=== PATIENT | male | born 1955 | race Caucasian/White ===

== ENCOUNTER 2017-09-02 14:58 | Inpatient (IN) | payer MEDICARE ==
[2017-09-02] MEDS ORDERED: HYDROcodone/APAP 5-325MG 1 EACH TAB PO STA (15:30)
--- NOTE | 2017-09-02 15:46 | ED ---
Back Pain HPI - General Chief Complaint: Back Pain/Injury Stated Complaint: fall, back pain Time Seen by Provider: 09/02/17 15:12 Source: patient, EMS Limitations: no limitations - History of Present Illness Initial Comments: Patient is a 62-year-old male who presents with the chief complaint of lower back pain after slip and fall accident down 5 wooden steps. The patient states that he was staying his deck and when he stood up he slipped. Patient states he did not lose consciousness. He only complains of low back pain at this time. The patient denies any use of blood thinners. The patient states that his lower back is sore, it is aggravated by movement and bearing weight. - Related Data Home Medications Medication Instructions Recorded Confirmed Atorvastatin [Lipitor] 40 mg PO HS 09/02/17 09/02/17 Fenofibrate Nanocrystallized 145 mg PO HS 09/02/17 09/02/17 [Fenofibrate] Gabapentin [Neurontin] 900 mg PO TID 09/02/17 09/02/17 Hydrocodone/Acetaminophen [[place] 1 tab PO Q6HR PRN 09/02/17 09/02/17 7.5-325] Allergies Allergy/AdvReac Type Severity Reaction Status Date / Time No Known Allergies Allergy Verified 09/02/17 15:50 Review of Systems ROS Statement: Those systems with pertinent positive or pertinent negative responses have been documented in the HPI. ROS Other: All systems not noted in ROS Statement are negative. Musculoskeletal: Reports: back pain Past Medical History Past Medical History: Coronary Artery Disease (CAD) Additional Past Medical History / Comment(s): spinal stenosis, DDD, lower back bulging disc History of Any Multi-Drug Resistant Organisms: None Reported Past Surgical History: Adenoidectomy, Heart Catheterization With Stent, Tonsillectomy Additional Past Surgical History / Comment(s): nasal surgery Past Psychological History: No Psychological Hx Reported Smoking Status: Current every day smoker Past Alcohol Use History: None Reported Past Drug Use History: None Reported General Exam Limitations: no limitations General appearance: alert, in no apparent distress Head exam: Present: atraumatic, normocephalic Eye exam: Present: normal appearance, PERRL, EOMI ENT exam: Present: normal exam, normal oropharynx, mucous membranes moist Neck exam: Present: normal inspection. Absent: tenderness Respiratory exam: Present: normal lung sounds bilaterally. Absent: respiratory distress Cardiovascular Exam: Present: regular rate, normal rhythm GI/Abdominal exam: Present: soft. Absent: distended, tenderness Rectal exam: Present: deferred Extremities exam: Present: normal inspection Back exam: Present: tenderness, muscle spasm, paraspinal tenderness, vertebral tenderness (patient has tenderness to palpation of the lumbar spine. there are no deformities or step offs. there is paraspinal musculature spasm. ) Neurological exam: Present: alert, oriented X3, CN II-XII intact, motor sensory deficit, reflexes normal, other (patellar reflexes 2+ b/l. motor and sensation is intact. ). Absent: normal gait Psychiatric exam: Present: normal affect, normal mood Skin exam: Present: warm, dry, intact Course Vital Signs 09/02/17 09/02/17 09/02/17 14:59 15:06 17:21 Temperature 97.8 F 98.6 F Pulse Rate 102 H 102 H 88 Respiratory 18 20 18 Rate Blood Pressure 137/80 137/80 146/91 O2 Sat by Pulse 94 L 95 96 Oximetry Medical Decision Making - Medical Decision Making Patient presents with a chief complaint of low back pain after a fall. On initial evaluation, vital signs are stable, patient is in no acute distress. The patient denies any use of blood thinners or loss of consciousness. There is no signs of trauma to the head, the neck is without midline tenderness. Patient given [place] in the emergency department for pain, he will be evaluated with x-rays of the lumbar spine and pelvis. 6:03 PM X-ray evaluation of this patient is unremarkable. On reevaluation, the patient states that he is still in pain but it doesn't hurt if he doesn't move. I tried a patient he was able to stand up. The patient lives at home with his 2 sisters were unable to care for him. I discussed this case with Dr. winston, the decision was made to admit the patient for physical therapy consultation and placement if necessary. patient and family agreeable to this plan. Disposition Clinical Impression: Unsteady gait, Low back pain, Mechanical back pain Disposition: ADMITTED IP TO THIS [facility] Condition: Good Instructions: Acute Low Back Pain (ED) Referrals: None,Stated [REFERRING] - 1-2 days Decision to Admit Reason: Admit from EC - Out of Hospital Transfer - Req. Specs Out of Hospital Transfer - Requested Specifics: Other Non-Acute
--- NOTE | 2017-09-02 16:40 | XR ---
EXAMINATION TYPE: XR pelvis AP view DATE OF EXAM: 09/02/2017 CLINICAL HISTORY: pain TECHNIQUE: Single view the pelvis is submitted. FINDINGS: No evidence for fracture, dislocation or bony lesion. Joint spaces are well-preserved. S I joints appear symmetric. IMPRESSION: 1. No acute fracture or dislocation seen. ICD 10 NO FRACTURE, INITIAL EVALUATION
--- NOTE | 2017-09-02 16:45 | XR ---
EXAMINATION TYPE: XR lumbar spine 2 or 3V DATE OF EXAM: 09/02/2017 CLINICAL HISTORY: pain TECHNIQUE: Three views of the lumbar spine are submitted. COMPARISON: None. FINDINGS: There are 5 lumbar type vertebral bodies identified. The lumbar spine shows satisfactory alignment w ithout evidence of acute fracture or dislocation. Vertebral body heights are within normal limits. Moderate to severe degenerative narrowing at L5-S1 with spondylosis. The overlying soft tissue appea rs unremarkable. IMPRESSION: No acute fracture or dislocation is seen in the lumbar spine. ICD 10 NO FRACTURE, INITIAL EVALUATION
[2017-09-02] MEDS ORDERED: IBUPROFEN 800 MG TAB PO PRN (18:00)
[2017-09-02] MEDS ORDERED: NALOXONE 0.4 MG/ML 1 ML VIAL IV PRN (18:00)
[2017-09-02 18:39] LABS: Basophils % (A) 0 %; Eosinophils # (A) 0.2 k/uL (0-0.7); Eosinophils % (A) 3 %; HCT 37.6 % (39.0-53.0); HGB 12.4 gm/dL (13.0-17.5); Lymphocytes # (A) 2.4 k/uL (1.0-4.8); Lymphocytes % (A) 34 %; MCH 29.7 pg (25.0-35.0); Mean Platelet Volume 6.9; Monocytes # (A) 0.3 k/uL (0-1.0); Monocytes % (A) 4 %; Neutrophils % (A) 57 %; Platelet Count 432 k/uL (150-450); RBC 4.18 m/uL (4.30-5.90); RDW 13.9 % (11.5-15.5)
[2017-09-02 18:47] LABS: Anion Gap 11 mmol/L; Blood Urea Nitrogen 14 mg/dL (9-20); Calcium 9.4 mg/dL (8.4-10.2); Carbon Dioxide 24 mmol/L (22-30); Chloride 110 mmol/L (98-107); Glucose 92 mg/dL (74-99); Sodium 145 mmol/L (137-145)
--- NOTE | 2017-09-02 19:59 | CT ---
EXAMINATION TYPE: CT pelvis wo con DATE OF EXAM: 09/02/2017 COMPARISON: NONE HISTORY: Lower back/sacrum and coccyx's pain after fall injury CT DLP: 670.85 mGycm Automated exposure control for dose reduction was used. Axial and coronal and sagittal data sets were obtained and reviewed. FINDINGS: There is no fracture or malalignment. Left unilateral L5 pars intra-articular defect is noted, an inc idental finding. No other musculoskeletal findings. Solid and hollow viscera of the pelvis is unremarkable. IMPRESSION: NO ACUTE PROCESS.
--- NOTE | 2017-09-02 20:03 | CT ---
EXAMINATION TYPE: CT lumbar spine wo con DATE OF EXAM: 09/02/2017 7:17 PM COMPARISON: NONE HISTORY: Lower back/sacrum and coccyx's pain after fall injury CT DLP: 617.34 mGycm Automated exposure control for dose reduction was used. Axial and coronal and sagittal data sets were obtained and reviewed. FINDINGS: There is no fracture or malalignment. Incidental left L5 pars interarticularis defect noted, an incid ental finding. No other musculoskeletal findings. There is a 15 x 5 mm obstructing staghorn calcification in the right renal lower collecting system. Moderate nonaneurysmal atherosclerotic intimal calcifications are appreciated throughout the arterial anatomy. IMPRESSION: NO ACUTE PROCESS.
[2017-09-02] MEDS: FENOFIBRATE 160 MG TAB PO SCH (21:54)
[2017-09-02] MEDS: PANTOPRAZOLE 40 MG TABLET PO SCH (21:54)
[2017-09-02] MEDS: GABAPENTIN 300 MG CAP PO SCH (21:54)
[2017-09-02] MEDS: ATORVASTATIN 40 MG TAB PO SCH (21:55)
[2017-09-02] MEDS: NICOTINE 14MG/24HR PATCH TRANSDERM SCH (21:55)
[2017-09-02] MEDS: oxyCODONE-APAP 5-325MG 1 EACH TAB PO PRN (21:59)
[2017-09-03] MEDS: KETOROLAC 30 MG/ML 1 ML VIAL IVP PRN ×4 (00:27→19:21)
--- NOTE | 2017-09-03 03:35 | HP ---
HISTORY AND PHYSICAL DATE OF ADMISSION: 09/02/17 I am covering for Dr. Иван Enriquez. CHIEF COMPLAINT: Back pain and fall. HISTORY OF PRESENT ILLNESS: This 62-year-old gentleman with a past medical history of multiple medical problems including asthma, CAD, COPD, GERD, hyperlipidemia, sleep apnea, spinal stenosis, CAD stent being followed by Dr. Иван Enriquez in the outpatient setting was admitted after a fall while on the ladder. The patient fell down about 5 wooden steps and patient is complaining of severe back pain just above the tailbone, which radiated to the back without much radiation to the legs. Patient also complains of neck pain. The patient had extensive x-ray evaluation which shows no fractures at this time. There is no history of fever, rigors or chills. No history of headache loss of consciousness or seizures at this time. PAST MEDICAL HISTORY: Asthma, CAD, COPD, GERD, hyperlipidemia, spinal stenosis, CAD stent. MEDICATIONS: Prior to admission include: 1. Omeprazole 20 mg p.o. b.i.d. 2. Neurontin 100 mg t.i.d. 3. Fenofibrate 140 mg q.h.s. 4. [place] 1 tablet every 6 hours p.r.n. 5. Lipitor 40 mg q.h.s. ALLERGIES: None. FAMILY HISTORY: History of myocardial infarction in the family. SOCIAL HISTORY: History of occasional alcohol intake and history of smoking. REVIEW OF SYSTEMS: ENT: No diminished hearing or diminished vision. CARDIOVASCULAR: No angina or palpitations. RESPIRATORY: No cough or hemoptysis. GI: No nausea or vomiting, diarrhea. : No dysuria. Nervous System mentioned earlier. Allergy/Immunology: No asthma or hayfever. Musculoskeletal as mentioned earlier. Hematology: No history of anemia. Endocrine: No history of diabetes or hypothyroidism. Constitutional: As mentioned earlier. Dermatology negative. Rheumatology: Negative. Psychiatry as mentioned earlier. PHYSICAL EXAM: Patient is alert, oriented x2. Pulse 72. Respiration 18. Blood pressure 135/75. Temperature 97.9, and pulse ox 96% on room air. HEENT: Conjunctivae normal. Oral mucosa moist. NECK: No jugular venous distention. No carotid bruit. No lymph node enlargement. CARDIOVASCULAR: S1, S2 normal. No S3, no S4. RESPIRATORY: Breath sounds diminished in the bases. No rhonchi and no crackles. ABDOMEN: Soft, nontender. No mass palpable. LEGS: No edema and no swelling. Nervous system: Higher functions as mentioned earlier. Moves all 4 limbs. No focal motor or sensory deficits. LYMPHATICS: No lymph nodes palpable in the neck, axillae or groin. SKIN: No ulcer, rash or bleeding. LABS: WBC 7, hemoglobin is 12.4, chloride is 110. ASSESSMENT: 1. Back pain and status post fall. 2. Gait dysfunction. 3. Anemia, normocytic. 4. Coronary artery disease. 5. History of asthma. 6. Chronic obstructive pulmonary disease. 7. History of gastroesophageal reflux disease. 8. Hyperlipidemia. 9. History of degenerative joint disease. 10.History of spinal stenosis. 11.History of coronary artery disease, stent. 12.History of nicotine dependence. 13.History of THC. RECOMMENDATIONS AND DISCUSSION: In this 62-year-old gentleman who presented with multiple complex medical issues, we will monitor the patient closely, continue the current medications, continue symptomatic treatment, and will initiate home medications. Otherwise I would recommend orthopedic evaluation. Continue the pain medications and I would also recommend repeat labs in the morning and continue to monitor. Otherwise I would also recommend smoking cessation. Repeat labs are noted as mentioned earlier. PT, OT evaluation. Pain medications. Symptomatic treatment of the pain including IV Toradol and further recommendations to follow up and orthopedic evaluation. X-rays were reviewed and further recommendations recommendations to follow. [id number] / NEALN: [id number] /
[2017-09-03 06:32] LABS: Amorphous Sediment,Urine Moderate /hpf; Appearance,Urine Cloudy (Clear); Bilirubin,Urine Negative (Negative); Blood,Urine Negative (Negative); Color,Urine Yellow; Glucose,Urine (UA) Negative (Negative); Ketones,Urine Negative (Negative); Leukocyte Esterase,Urine Negative (Negative); Nitrite,Urine Negative (Negative); Protein,Urine Negative (Negative); Specific Gravity,Urine 1.013 (1.001-1.035); Urobilinogen,Urine <2.0 mg/dL (<2.0)
[2017-09-03 06:40] LABS: Amphetamine Screen,Urine Not Detected (NotDetected); Benzodiazepines Screen,Urine Not Detected (NotDetected); Cocaine Screen,Urine Not Detected (NotDetected); Opiate Screen,Urine Detected (NotDetected); Phencyclidine Screen,Urine Not Detected (NotDetected); Urn Cannabinoid Scrn Not Detected (NotDetected)
[2017-09-03 06:41] LABS: Barbiturate Screen,Urine Not Detected (NotDetected); Methadone Screen, Urine Not Detected (NotDetected); Oxycodone Screen, Urine Detected (NotDetected); Tricyclic Antidepressant,Urine Not Detected (NotDetected)
[2017-09-03] MEDS: PANTOPRAZOLE 40 MG TABLET PO SCH (09:38)
[2017-09-03] MEDS: GABAPENTIN 300 MG CAP PO SCH ×3 (09:38→22:20)
[2017-09-03] MEDS: NICOTINE 14MG/24HR PATCH TRANSDERM SCH (09:39)
[2017-09-03] MEDS: oxyCODONE-APAP 5-325MG 1 EACH TAB PO PRN ×2 (09:59→22:18)
[2017-09-03] MEDS ORDERED: ACETAMINOPHEN TAB 325 MG TAB PO PRN (12:04)
--- NOTE | 2017-09-03 15:41 | P.PN ---
Subjective Progress Note Date: 09/03/17 Progress note being dictated for Dr. Lee. Interval history: This a 62-year-old gentleman admitted status post fall with back pain in a patient with history of spinal stenosis and multiple other medical issues. Evaluated by PT/OT with subacute rehab recommended. Pain currently controlled. Set up in chair for a short amount of time. Good diet intake with no nausea or vomiting. Denies chest pain, palpitations, shortness of breath. Objective - Vital Signs Vital signs: Vital Signs Temp 97.3 F L 09/03/17 07:00 Pulse 74 09/03/17 07:00 Resp 16 09/03/17 07:00 BP 129/69 09/03/17 07:00 Pulse Ox 96 09/03/17 07:00 Intake & Output 09/02/17 09/03/17 09/03/17 18:59 06:59 18:59 Intake Total 400 Output Total 2234 Balance -1834 Weight 92.986 kg Intake: Oral 400 Output: Urine 1650 Post Void Residual 584 Other: Voiding Method Urinal Urinal # Voids 1 # Bowel Movements 1 - Exam PHYSICAL EXAM: VITAL SIGNS: As above GENERAL: Lying in bed, no acute distress HEENT: Conjunctivae normal. eyes normal. Oral mucosa moist NECK: No JVD. No thyroid enlargement. No LNs CARDIOVASCULAR: S1, S2 muffled. No murmur RESPIRATION: Breath sounds diminished in the bases. No rhonchi or crackles. No bronchial breathing. ABDOMEN: Soft, nontender . No guarding. no masses palpable. Bowel sounds heard. LEGS: No edema. no swelling PSYCHIATRY: Alert and oriented -3, mood and affect normal. NERVOUS SYSTEM: Cranial N 2-12 grossly normal. Moves all 4 limbs. Diffuse weakness No focal deficits. No sensory deficit. Skin: no ulcer no rash Joints: No active swelling. No inflammation. Lymphatic system. No LN neck axilla or groin. - Labs CBC & Chem 7: 09/02/17 18:29 09/02/17 18:29 Labs: Abnormal Lab Results - Last 24 Hours (Table) 09/02/17 09/02/17 09/03/17 Range/Units 18:29 18:29 06:05 RBC 4.18 L (4.30-5.90) m/uL Hgb 12.4 L (13.0-17.5) gm/dL Hct 37.6 L (39.0-53.0) % Chloride 110 H (98-107) mmol/L Amorphous Sediment Moderate H (None) /hpf Urine Opiates Screen Detected H (NotDetected) Ur Oxycodone Screen Detected H (NotDetected) Assessment and Plan Assessment: 1. Back pain, status post fall 2. Gait dysfunction with degenerative joint disease 3. Chronic back pain, History of spinal stenosis 4. Sleep apnea, uses CPAP at home 5. COPD 6. Ongoing nicotine abuse 7. CAD 8. Hyperlipidemia Plan: Continue on current medication regime ,monitoring and symptomatic treatment. Pain management to include Ice to lower back every 15 minutes every hour. Pain management services consulted. PT/OT. Social work consulted for subacute rehab at discharge which patient is agreeable to. The impression and plan of care has been dictated as directed. : I performed a history and examination of this patient, discussed the same with the dictator. I agree with the dictator's note ,documented as a scribe. Any additional findings or plans will be noted.
[2017-09-03] MEDS: ATORVASTATIN 40 MG TAB PO SCH (22:19)
[2017-09-03] MEDS: FENOFIBRATE 160 MG TAB PO SCH (22:20)
[2017-09-04] MEDS: KETOROLAC 30 MG/ML 1 ML VIAL IVP PRN ×3 (04:20→21:44)
[2017-09-04] MEDS: oxyCODONE-APAP 5-325MG 1 EACH TAB PO PRN ×2 (05:22→11:07)
[2017-09-04 07:56] LABS: Basophils % (A) 1 %; Eosinophils # (A) 0.2 k/uL (0-0.7); Eosinophils % (A) 3 %; HCT 37.3 % (39.0-53.0); HGB 12.5 gm/dL (13.0-17.5); Lymphocytes % (A) 29 %; MCH 30.4 pg (25.0-35.0); MCHC 33.4 g/dL (31.0-37.0); MCV 90.9 fL (80.0-100.0); Mean Platelet Volume 6.7; Monocytes # (A) 0.3 k/uL (0-1.0); Monocytes % (A) 4 %; Neutrophils # (A) 4.1 k/uL (1.3-7.7); Neutrophils % (A) 62 %; Platelet Count 395 k/uL (150-450); RDW 13.9 % (11.5-15.5); WBC 6.6 k/uL (3.8-10.6)
[2017-09-04] MEDS: PANTOPRAZOLE 40 MG TABLET PO SCH (08:11)
[2017-09-04] MEDS: GABAPENTIN 300 MG CAP PO SCH ×3 (08:11→21:44)
[2017-09-04] MEDS: NICOTINE 14MG/24HR PATCH TRANSDERM SCH (08:11)
[2017-09-04 08:23] LABS: Blood Urea Nitrogen 21 mg/dL (9-20); Calcium 9.6 mg/dL (8.4-10.2); Carbon Dioxide 23 mmol/L (22-30); Glucose 114 mg/dL (74-99); Potassium 4.3 mmol/L (3.5-5.1); Sodium 146 mmol/L (137-145)
--- NOTE | 2017-09-04 08:28 | P.CON ---
Consult Note - . Consult date: 09/04/17 Assessment/Plan:: Patient seen and examined, chart reviewed. Mr. Waldron is a 62-year-old male with [id number] back pain secondary to fall at home resulting in lumbar strain. He takes [place] as prescribed by his PCP and normally it works well for his pain. He has tried interventional procedures before (LESI) without relief and does not want any further injections done. Primary service changed him to Percocet when he was admitted to the hospital and this is helping him substantially at this point along with ice. Review of MAPS demonstrates that patient filled [place] prescription in mid- July and should have enough medication to return to Dr. Enriquez for opioid management. Thank you for the consult. Will sign off, please call back with any questions.
[2017-09-04 08:37] LABS: Anion Gap 14 mmol/L; Chloride 109 mmol/L (98-107)
--- NOTE | 2017-09-04 15:00 | P.PN ---
Subjective Progress Note Date: 09/04/17 Progress note being dictated for Dr. Lee. Interval history: This a 62-year-old gentleman admitted status post fall with back pain in a patient with history of spinal stenosis and multiple other medical issues. Evaluated by PT/OT with subacute rehab recommended. Pain currently controlled. Set up in chair for a short amount of time. Good diet intake with no nausea or vomiting. Denies chest pain, palpitations, shortness of breath. 09/04/2017 Evaluated by a pain management with recommendations noted. Slowly improving. Mild worsening of renal function. Denies chest pain, palpitations or shortness of breath. Objective - Vital Signs Vital signs: Vital Signs Temp 97.7 F 09/04/17 05:00 Pulse 75 09/04/17 08:00 Resp 16 09/04/17 08:00 BP 123/71 09/04/17 05:00 Pulse Ox 93 L 09/04/17 05:00 Intake & Output 09/03/17 09/04/17 09/04/17 18:59 06:59 18:59 Intake Total 1140 1340 Output Total 2400 Balance -1260 1340 Intake: Oral 1140 1340 Output: Urine 2400 Other: Voiding Method Urinal Urinal Urinal # Voids 3 # Bowel Movements 1 - Exam PHYSICAL EXAM: VITAL SIGNS: As above GENERAL: Lying in bed, no acute distress HEENT: Conjunctivae normal. eyes normal. Oral mucosa moist NECK: No JVD. No thyroid enlargement. No LNs CARDIOVASCULAR: S1, S2 muffled. No murmur RESPIRATION: Breath sounds diminished in the bases. No rhonchi or crackles. No bronchial breathing. ABDOMEN: Soft, nontender . No guarding. no masses palpable. Bowel sounds heard. LEGS: No edema. no swelling PSYCHIATRY: Alert and oriented -3, mood and affect normal. NERVOUS SYSTEM: Cranial N 2-12 grossly normal. Moves all 4 limbs. Diffuse weakness No focal deficits. No sensory deficit. Skin: no ulcer no rash Joints: No active swelling. No inflammation. Lymphatic system. No LN neck axilla or groin. - Labs CBC & Chem 7: 09/04/17 07:27 09/04/17 07:27 Labs: Abnormal Lab Results - Last 24 Hours (Table) 09/04/17 09/04/17 Range/Units 07:27 07:27 RBC 4.10 L (4.30-5.90) m/uL Hgb 12.5 L (13.0-17.5) gm/dL Hct 37.3 L (39.0-53.0) % Sodium 146 H (137-145) mmol/L Chloride 109 H (98-107) mmol/L BUN 21 H (9-20) mg/dL Glucose 114 H (74-99) mg/dL Assessment and Plan Assessment: 1. Back pain, status post fall 2. Gait dysfunction with degenerative joint disease 3. Chronic back pain, History of spinal stenosis 4. Sleep apnea, uses CPAP at home 5. COPD 6. Ongoing nicotine abuse 7. CAD 8. Hyperlipidemia Plan: Continue on current medication regime ,monitoring and symptomatic treatment. Pain management. Encourage Increased oral fluid intake, will maintain patient on Toradol and Motrin. Close monitoring of renal function with repeat labs ordered for a.m. PT/OT. Discharge planning in progress for subacute rehab. The impression and plan of care has been dictated as directed. : I performed a history and examination of this patient, discussed the same with the dictator. I agree with the dictator's note ,documented as a scribe. Any additional findings or plans will be noted.
--- NOTE | 2017-09-04 17:03 | P.CNOR ---
History of Present Illness - [facility] Consult reason: low back pain (Acute on chronic low back pain) History of present illness: Patient is a very pleasant 62-year-old male who is seen and examined at the bedside after consultation was placed for further evaluation for acute low back pain. Patient states on Saturday he was painting at his sister's house when he fell off a porch at that time injuring his back. He has had a significant exacerbation of back pain since that time. He states he has a sharp stabbing pain that radiates across his back. He has had some improvement of his symptoms since his admittance to the hospital. He denies any specific lower extremity radiculopathy weakness bilaterally. He has had some difficulty with ambulation due to his back pain. He is hoping to attempt to ambulate today. He states he has chronic low back pain with a dull pain that is daily. Since the exacerbation his symptoms have been significantly worse. He presented to the emergency department for further evaluation. He states he just moved back to [place] after residing in [place] for 30 years. He states while in [place] he was taking regular prescribed medications of [place], Soma, Ultram, and gabapentin. He's been following with his primary care provider, Dr. Иван Enriquez, since his return to [place]. He states he is attempting to have an appointment with a pain management provider to try to help get back on a regular regimen to help control his pain. He has been seen and examined by pain management while in the hospital but declined injections as the increase in his narcotic pain medication along with ice has helped improve his symptoms. He states he does have an appointment scheduled for follow-up evaluation with Dr. Lopez at [facility] in October. He states he does have a history of stenosis and cervical pain but does not currently have any complaints in this regard. He is seeking treatment in the outpatient setting in this regard. He states he contacted Dr. Xiao's office 3 weeks ago to set up appointment but has not received a call back. Past Medical History Past Medical History: Asthma, Coronary Artery Disease (CAD), COPD, GERD/Reflux, Hyperlipidemia, Sleep Apnea/CPAP/BIPAP Additional Past Medical History / Comment(s): spinal stenosis, DDD, lower back bulging disc, kidney stones, hiatal hernia, pulmonary nodules, bronchitis, neuropathy, has had a shingelles vaccine, lower bridge History of Any Multi-Drug Resistant Organisms: None Reported Past Surgical History: Adenoidectomy, Heart Catheterization With Stent, Tonsillectomy Additional Past Surgical History / Comment(s): nasal surgery, colonoscopy, egd, dental implants Past Anesthesia/Blood Transfusion Reactions: No Reported Reaction Date of Last Stent Placement:: unk Smoking Status: Current every day smoker - Past Family History Mother Family Medical History: Myocardial Infarction (DC) Additional Family Medical History / Comment(s): age 61 from [place] Father Family Medical History: Cancer Additional Family Medical History / Comment(s): [id number] from lung cancer w/mets Medications and Allergies Home Medications Medication Instructions Recorded Confirmed Type Atorvastatin [Lipitor] 40 mg PO HS 09/02/17 09/02/17 History Fenofibrate Nanocrystallized 145 mg PO HS 09/02/17 09/02/17 History [Fenofibrate] Gabapentin [Neurontin] 900 mg PO TID 09/02/17 09/02/17 History Hydrocodone/Acetaminophen [[place] 1 tab PO Q6HR 09/02/17 09/02/17 History 7.5-325] Omeprazole 20 mg PO BID 09/02/17 09/02/17 History Allergies Allergy/AdvReac Type Severity Reaction Status Date / Time No Known Allergies Allergy Verified 09/02/17 15:50 Physical Examination Physical exam: Patient is awake, alert, and oriented 3 Vital signs stable Good chest excursion with deep inspiration and expiration Abdomen soft nontender Examination of lumbar spine reveals skin is intact with no abrasions, lacerations, or bruises; no erythema, purulence or signs of infection Pain on palpation across the lower lumbar spine Dorsiflexion, plantarflexion, and extensor hallucis longus positive sustained bilaterally Lower extremity strength 5/5 bilaterally Patellar reflex 3+ bilaterally and Achilles reflexes 2+ bilaterally Evidence of hyperreflexia at the patellar bilaterally Straight leg test negative bilateral lower extremities Negative Lasegue's test bilaterally No signs or symptoms of DVT; no calf pain No pain with internal and external rotation of the hips bilaterally Neurovascularly intact Results Pertinent studies: X-rays lumbosacral spine: L5-S1 severe degenerative disc disease with anterior osteophytic spurring with spondylosis; overall alignment appears to be adequately maintained; no evidence of fracture or dislocation; T12-L1 degenerative disc disease; L1-2 degenerative disc disease with anterior osteophytic spurring CT of the lumbar spine: No evidence of fracture or malalignment; incidental left L5 pars interarticularis defects noted with no other incidental findings or musculoskeletal findings; L1-2 degenerative disc disease with anterior osteophytic spurring and sclerosis of the endplates; L5-S1 severe degenerative disc disease; 15 mm x 5 mm obstructing staghorn calcification in the right renal lower collecting system - Labs Labs: Abnormal Lab Results - Last 24 Hours (Table) 09/04/17 09/04/17 Range/Units 07:27 07:27 RBC 4.10 L (4.30-5.90) m/uL Hgb 12.5 L (13.0-17.5) gm/dL Hct 37.3 L (39.0-53.0) % Sodium 146 H (137-145) mmol/L Chloride 109 H (98-107) mmol/L BUN 21 H (9-20) mg/dL Glucose 114 H (74-99) mg/dL H & H 09/02/17 09/04/17 Range/Units 18:29 07:27 Hgb 12.4 L 12.5 L (13.0-17.5) gm/dL Hct 37.6 L 37.3 L (39.0-53.0) % Result Diagrams: 09/04/17 07:27 09/04/17 07:27 Assessment and Plan Assessment: Assessment: Acute on chronic low back pain status post fall Lumbar degenerative disc disease Lumbosacral degenerative disc disease Left L5 pars interarticularis defect (1) Acute exacerbation of chronic low back pain Current Visit: Yes Status: Acute Code(s): M54.5 - LOW BACK PAIN; G89.29 - OTHER CHRONIC PAIN SNOMED Code(s): 373861158 (2) Status post fall Current Visit: Yes Status: Acute Code(s): Z91.81 - HISTORY OF FALLING SNOMED Code(s): 268288943 (3) Lumbar degenerative disc disease Current Visit: Yes Status: Acute Code(s): M51.36 - OTHER INTERVERTEBRAL DISC DEGENERATION, LUMBAR REGION SNOMED Code(s): 94539450 (4) DJD (degenerative joint disease), lumbosacral Current Visit: Yes Status: Acute Code(s): M51.37 - OTHER INTERVERTEBRAL DISC DEGENERATION, LUMBOSACRAL REGION SNOMED Code(s): 85233873 (5) Lumbar spondylolysis Current Visit: Yes Status: Acute Code(s): M43.06 - SPONDYLOLYSIS, LUMBAR REGION SNOMED Code(s): 701319774 Plan: Plan: 1. After physical examination of the patient, reviewing of imaging, discussion with Dr. Kentrell Lopez, and discussion with the patient, we will currently plan to continue conservative treatment. His symptoms have been improving since his admittance to the hospital. He will attempt to ambulate today. He has declined injections or further treatment with pain management. He would like to continue with conservative treatment and follow-up in the outpatient setting as scheduled in October. We discussed we will try to refer him to Dr. Cano in pain management for further evaluation and treatment in regards to his chronic issues at his cervical spine and lumbar spine. He is very thankful for the referral is hoping to be able to follow with Dr. Cano in the outpatient setting. We discussed we are not currently planning for acute surgical intervention in regards to his lumbosacral spine and he agrees this is a good plan of care. 2. Patient will continue to be followed by medicine for further evaluation and treatment including worsening renal function which labs are ordered for the a.m. 3. Per recommendations by medicine, patient will be planned to be discharged to subacute rehab facility 4. Orders will be placed for consultation in the outpatient setting with Dr. Cano in pain management at [facility] 5. Following discharge, patient will plan to follow-up with Dr. Kentrell Lopez at [facility] as scheduled in October 2007 Time with Patient: Less than 30
[2017-09-04] MEDS: FENOFIBRATE 160 MG TAB PO SCH (21:44)
[2017-09-04] MEDS: ATORVASTATIN 40 MG TAB PO SCH (21:44)
[2017-09-05] MEDS: KETOROLAC 30 MG/ML 1 ML VIAL IVP PRN ×2 (04:32→13:14)
[2017-09-05] MEDS: oxyCODONE-APAP 5-325MG 1 EACH TAB PO PRN ×3 (07:55→21:17)
[2017-09-05] MEDS: GABAPENTIN 300 MG CAP PO SCH ×3 (07:56→21:17)
[2017-09-05] MEDS: PANTOPRAZOLE 40 MG TABLET PO SCH (07:57)
[2017-09-05] MEDS: NICOTINE 14MG/24HR PATCH TRANSDERM SCH (07:57)
[2017-09-05 07:58] LABS: Basophils % (A) 1 %; Eosinophils # (A) 0.2 k/uL (0-0.7); Eosinophils % (A) 4 %; HCT 39.6 % (39.0-53.0); HGB 12.7 gm/dL (13.0-17.5); Hypochromasia Slight; Lymphocytes # (A) 1.9 k/uL (1.0-4.8); Lymphocytes % (A) 28 %; MCH 29.4 pg (25.0-35.0); MCV 91.8 fL (80.0-100.0); Mean Platelet Volume 6.7; Monocytes # (A) 0.3 k/uL (0-1.0); Monocytes % (A) 4 %; Neutrophils # (A) 4.1 k/uL (1.3-7.7); Neutrophils % (A) 62 %; Platelet Count 373 k/uL (150-450); RBC 4.31 m/uL (4.30-5.90); WBC 6.6 k/uL (3.8-10.6)
[2017-09-05 08:13] LABS: Anion Gap 12 mmol/L; Blood Urea Nitrogen 20 mg/dL (9-20); Calcium 9.5 mg/dL (8.4-10.2); Carbon Dioxide 27 mmol/L (22-30); Chloride 108 mmol/L (98-107); Glucose 102 mg/dL (74-99); Potassium 4.4 mmol/L (3.5-5.1); Sodium 147 mmol/L (137-145)
[2017-09-05] MEDS: FENOFIBRATE 160 MG TAB PO SCH (21:17)
[2017-09-05] MEDS: ATORVASTATIN 40 MG TAB PO SCH (21:17)
[2017-09-05 22:24] VITALS: RESP 16
[2017-09-06] MEDS: oxyCODONE-APAP 5-325MG 1 EACH TAB PO PRN ×2 (02:00→10:08)
[2017-09-06] MEDS: KETOROLAC 30 MG/ML 1 ML VIAL IVP PRN ×2 (02:04→10:08)
[2017-09-06 06:42] VITALS: BP 121/70; PULSE 61; TEMP 97.4
[2017-09-06] MEDS: NICOTINE 14MG/24HR PATCH TRANSDERM SCH (07:28)
[2017-09-06] MEDS: PANTOPRAZOLE 40 MG TABLET PO SCH (07:28)
[2017-09-06] MEDS: GABAPENTIN 300 MG CAP PO SCH (07:28)
--- NOTE | 2017-09-15 22:51 | P.PN ---
Subjective Progress Note Date: 09/05/17 Principal diagnosis: Back pain. s/p fall Interval history: This a 62-year-old gentleman admitted status post fall with back pain in a patient with history of spinal stenosis and multiple other medical issues. Evaluated by PT/OT with subacute rehab recommended. Pain currently controlled. Set up in chair for a short amount of time. Good diet intake with no nausea or vomiting. Denies chest pain, palpitations, shortness of breath. 09/04/2017 Evaluated by a pain management with recommendations noted. Slowly improving. Mild worsening of renal function. Denies chest pain, palpitations or shortness of breath. 09/05/17 Back pain is better. no CP/SOB. able to parcipate with PT. antipate DC in next 24hrs to rehab. Objective - Vital Signs Vital signs: Vital Signs Temp 98.0 F 09/05/17 14:47 Pulse 86 09/05/17 15:27 Resp 18 09/05/17 15:27 BP 115/63 09/05/17 14:47 Pulse Ox 94 L 09/05/17 14:47 Intake & Output 09/05/17 09/05/17 09/06/17 06:59 18:59 06:59 Intake Total 1180 480 Output Total 1500 1100 Balance -320 -620 Intake: Oral 1180 480 Output: Urine 1500 1100 Other: Voiding Method Toilet Toilet Toilet Urinal Urinal Urinal # Voids 1 3 # Bowel Movements 1 - Exam GENERAL: Lying in bed, no acute distress HEENT: Conjunctivae normal. eyes normal. Oral mucosa moist NECK: No JVD. No thyroid enlargement. No LNs CARDIOVASCULAR: S1, S2 muffled. No murmur RESPIRATION: Breath sounds diminished in the bases. No rhonchi or crackles. No bronchial breathing. ABDOMEN: Soft, nontender . No guarding. no masses palpable. Bowel sounds heard. LEGS: No edema. no swelling PSYCHIATRY: Alert and oriented -3, mood and affect normal. NERVOUS SYSTEM: Cranial N 2-12 grossly normal. Moves all 4 limbs. Diffuse weakness No focal deficits. No sensory deficit. Skin: no ulcer no rash Joints: No active swelling. No inflammation. Lymphatic system. No LN neck axilla or groin. - Labs CBC & Chem 7: 09/05/17 07:20 09/05/17 07:20 Labs: Abnormal Lab Results - Last 24 Hours (Table) 09/05/17 09/05/17 Range/Units 07:20 07:20 Hgb 12.7 L (13.0-17.5) gm/dL Sodium 147 H (137-145) mmol/L Chloride 108 H (98-107) mmol/L Glucose 102 H (74-99) mg/dL Assessment and Plan Assessment: 1. Back pain, status post fall 2. Gait dysfunction with degenerative joint disease 3. Chronic back pain, History of spinal stenosis 4. Sleep apnea, uses CPAP at home 5. COPD 6. Ongoing nicotine abuse 7. CAD 8. Hyperlipidemia Plan: Continue on current medication regime ,monitoring and symptomatic treatment. Pain management. Encourage Increased oral fluid intake, will maintain patient on Toradol and Motrin. Close monitoring of renal function with repeat labs ordered for a.m. PT/OT. Discharge planning in progress for subacute rehab.
--- NOTE | 2017-09-15 22:54 | P.DS ---
Providers Date of admission: 09/03/17 11:39 Expected date of discharge: 09/06/17 Attending physician: Lukas Bueno MD Consults: 09/03/17 00:17 Consult Physician Routine Consulting Provider: Kaden Sullivan Consult Reason/Comments: back pain, neck pain, Do you want consulting provider notified?: Yes, Notify in am 09/03/17 10:02 Consult Physician Routine Consulting Provider: Cyrus Greenberg Consult Reason/Comments: inpt rehab Do you want consulting provider notified?: Yes 09/03/17 11:52 Consult Physician Routine Consulting Provider: Rosanna Gentile Consult Reason/Comments: Acute on chronic back pain Do you want consulting provider notified?: Yes Primary care physician: Иван Enriquez Hospital Course: Discharge diagnosis. 1. Back pain, status post fall 2. Gait dysfunction with degenerative joint disease 3. Chronic back pain, History of spinal stenosis 4. Sleep apnea, uses CPAP at home 5. COPD 6. Ongoing nicotine abuse 7. CAD 8. Hyperlipidemia Hospital course. Interval history: This a 62-year-old gentleman admitted status post fall with back pain in a patient with history of spinal stenosis and multiple other medical issues. Evaluated by PT/OT with subacute rehab recommended. Pain currently controlled. Set up in chair for a short amount of time. Good diet intake with no nausea or vomiting. Denies chest pain, palpitations, shortness of breath. 09/04/2017 Evaluated by a pain management with recommendations noted. Slowly improving. Mild worsening of renal function. Denies chest pain, palpitations or shortness of breath. 09/05/17 Back pain is better. no CP/SOB. able to parcipate with PT. antipate DC in next 24hrs to rehab. 09/06/17 Back pain is controlled. no c/o CP/SOB. pt. is being discharged to rehab today. Plan: Continued on current medication regime ,monitoring and symptomatic treatment. Pain management. Encourage Increased oral fluid intake, will maintain patient on Toradol and Motrin. Close monitoring of renal function with repeat labs ordered for a.m. PT/OT. Discharge to subacute rehab. PE: GENERAL: Lying in bed, no acute distress HEENT: Conjunctivae normal. eyes normal. Oral mucosa moist NECK: No JVD. No thyroid enlargement. No LNs CARDIOVASCULAR: S1, S2 muffled. No murmur RESPIRATION: Breath sounds diminished in the bases. No rhonchi or crackles. No bronchial breathing. ABDOMEN: Soft, nontender . No guarding. no masses palpable. Bowel sounds heard. LEGS: No edema. no swelling PSYCHIATRY: Alert and oriented -3, mood and affect normal. NERVOUS SYSTEM: Cranial N 2-12 grossly normal. Moves all 4 limbs. Diffuse weakness No focal deficits. No sensory deficit. Skin: no ulcer no rash Joints: No active swelling. No inflammation. Lymphatic system. No LN neck axilla or groin. Vitals reviewed. Patient Condition at Discharge: Good Plan - Discharge Summary Discharge Rx Participant: No New Discharge Prescriptions: New Ibuprofen [Motrin] 800 mg PO Q8HR PRN #15 tab PRN Reason: Mild Pain Or Fever > 100.5 Continue Gabapentin [Neurontin] 900 mg PO TID Atorvastatin [Lipitor] 40 mg PO HS Hydrocodone/Acetaminophen [[place] 7.5-325] 1 tab PO Q6HR Fenofibrate Nanocrystallized [Fenofibrate] 145 mg PO HS Omeprazole 20 mg PO BID Discharge Medication List Atorvastatin [Lipitor] 40 mg PO HS 09/02/17 [History] Fenofibrate Nanocrystallized [Fenofibrate] 145 mg PO HS 09/02/17 [History] Gabapentin [Neurontin] 900 mg PO TID 09/02/17 [History] Hydrocodone/Acetaminophen [[place] 7.5-325] 1 tab PO Q6HR 09/02/17 [History] Omeprazole 20 mg PO BID 09/02/17 [History] Ibuprofen [Motrin] 800 mg PO Q8HR PRN #15 tab 09/06/17 [Rx] Follow up Appointment(s)/Referral(s): Anuel Lopez DO [Doctor of Osteopathic Medicine] - 11/01/17 1:00 pm (Patient may follow-up with Dr. Kentrell Lopez at [facility] as scheduled in October 2017 following discharge. ) Oliver Cano DO [Doctor of Osteopathic Medicine] - 09/19/17 1:20 pm (Patient may follow-up with Dr. Cano at [facility] in 2-3 weeks following discharge for further treatment and evaluation in regards to his cervical spine and lumbar spine. ) Patient Instructions/Handouts: Ibuprofen (By mouth), Acute Low Back Pain (ED), Fall Prevention (DC), Degenerative Disc Disease (DC) Activity/Diet/Wound Care/Special Instructions: [facility] requesting referral and paperwork from lung doctor in order to replace current CPAP: #[phone] Discharge Disposition: HOME SELF-CARE
--- NOTE | 2017-09-20 08:44 | CDI ---
Last Revision, March 2017 Documentation Clarification Form Date: 09/20/17 From: Lizeth Tao Chitra Davalos, Learning Consultant Hours-8:30 am & 5 pm M-F Admit Date: 09/03/2017 11:39:00 AM Patient Name: Sandor Waldron Visit Number: [id number] Discharge Date: 09/06/17 ATTENTION: The Clinical Documentation Specialists (CDI) and [facility] Coding Staff appreciate your assistance in clarifying documentation. Please respond to the clarification below the line at the bottom and electronically sign. The CDI & [facility] Coding staff will review the response and follow-up if needed. Please note: Queries are made part of the Legal Health Record. If you have any questions, please contact the author of this message via ITS. Dr. Boni Lee Per Dr Burnette consult "acute on chronic back pain secondary to fall at home resulting in lumbar strain." Patient history/risk factors: lumbar degen disc disease, LS degen disc disease Radiology findings: no fractures or other acute process found Treatment: pain management, PT/OT Consults: Ortho, Can the patients principal diagnosis of back pain, status post fall be further specified? In your professional opinion, can you please clarify which diagnosis, after study, accounted for the patients presenting symptoms and was the reason chiefly responsible for the admission? Back pain Lumbar strain Other Please continue to document in your progress notes and discharge summary in order to capture severity of illness and risk of mortality. Include clinical findings that support your diagnosis. Possible Lumbar strain MTDD
== END 2017-09-06 13:52 | disposition home or self-care (01) | DRG 563 ==
LOC: EC 14:58 → 5MS5E 18:00 → OBSVTOIN 09-03 11:39
PROVIDERS: ADMIT Internal Medicine; ATTEND Internal Medicine
DX: S39.012A Strain of muscle, fascia and tendon of lower back, initial encounter (principal); G62.9 Polyneuropathy, unspecified; G89.11 Acute pain due to trauma; G89.29 Other chronic pain; M51.36 Other intervertebral disc degeneration, lumbar region; M51.37 Other intervertebral disc degeneration, lumbosacral region; M43.06 Spondylolysis, lumbar region; M48.00 Spinal stenosis, site unspecified; D64.9 Anemia, unspecified; K44.9 Diaphragmatic hernia without obstruction or gangrene; R91.8 Other nonspecific abnormal finding of lung field; G47.30 Sleep apnea, unspecified; E78.5 Hyperlipidemia, unspecified; J44.9 Chronic obstructive pulmonary disease, unspecified; I25.10 Atherosclerotic heart disease of native coronary artery without angina pectoris; K21.9 Gastro-esophageal reflux disease without esophagitis; M54.2 Cervicalgia; R26.9 Unspecified abnormalities of gait and mobility; F17.200 Nicotine dependence, unspecified, uncomplicated; Z71.6 Tobacco abuse counseling; Z79.891 Long term (current) use of opiate analgesic; Z79.899 Other long term (current) drug therapy; Z95.5 Presence of coronary angioplasty implant and graft; Z87.442 Personal history of urinary calculi; Z97.2 Presence of dental prosthetic device (complete) (partial); W11.XXXA Fall on and from ladder, initial encounter; Y92.008 Other place in unspecified non-institutional (private) residence as the place of occurrence of the external cause; Z82.49 Family history of ischemic heart disease and other diseases of the circulatory system; Z80.1 Family history of malignant neoplasm of trachea, bronchus and lung
CPT/HCPCS: 72100; 72131; 72170; 72192; 80048; 80306; 81001; 85025; 94660; 94760; 99285

== ENCOUNTER → 2017-09-19 | Outpatient (CLI) | payer MEDICARE ==
--- NOTE | 2017-09-19 15:54 | XR ---
EXAMINATION TYPE: XR chest 2V DATE OF EXAM: 09/19/2017 COMPARISON: NONE HISTORY: Cough. TECHNIQUE: Frontal and lateral views of the chest are obtained. FINDINGS: There is no focal air space opacity, pleural effusion, or pneumothorax seen. The cardiac silhouette size is within normal limits. The osseous structures are intact. Right acromioclavicular separation is incidentally noted as well as prior healed right posterior lateral rib fractures. IMPRESSION: No acute cardiopulmonary process.
== END | disposition home or self-care (01) ==
LOC: RADXRMAIN 15:04
PROVIDERS: ATTEND Family Medicine
DX: J18.9 Pneumonia, unspecified organism (principal)
CPT/HCPCS: 71046

== ENCOUNTER → 2018-03-20 | Outpatient (CLI) | payer MEDICARE, OTHER ==
--- NOTE | 2018-03-20 10:02 | XR ---
EXAMINATION TYPE: XR chest 2V DATE OF EXAM: 03/20/2018 COMPARISON: 09/19/2017 HISTORY: Shortness of breath TECHNIQUE: Frontal and lateral views of the chest are obtained. FINDINGS: Scattered senescent parenchymal changes noted. No evidence for infiltrate. No evidence for atelectasis. Heart size is stable. Mediastinal structures are stable and grossly unremarkable. No evidence for hilar prominence. Degenerative changes dorsal spine. IMPRESSION: 1. No evidence for acute pulmonary disease.
== END ==
LOC: RADXRMAIN 09:36
PROVIDERS: ATTEND Physician Assistant
DX: J44.9 Chronic obstructive pulmonary disease, unspecified (principal)
CPT/HCPCS: 71046

== ENCOUNTER → 2018-08-05 | Outpatient (CLI) | payer MEDICARE ==
--- NOTE | 2018-08-05 16:39 | US ---
EXAMINATION TYPE: US kidneys/renal and bladder DATE OF EXAM: 08/05/2018 COMPARISON: NONE CLINICAL HISTORY: N17.9 TERA. abn labs, hx renal stones per patient EXAM MEASUREMENTS: Right Kidney: 10.4 x 4.9 x 6.1 cm Left Kidney: 12.0 x 6.2 x 6.6 cm Right Kidney: Moderate hydronephrosis visualized Left Kidney: Dromedary hump. Cystic appearing lesion seen mid pole in renal cortex= 1.4 x 1.1 x 1.0 cm Bladder: distended, wnl Left jet seen IMPRESSION: 1. Moderate right hydronephrosis. 2. Cyst on the left renal cortex
== END ==
LOC: RADUSWWP 12:03
PROVIDERS: ATTEND Internal Medicine Nephrology
DX: N28.1 Cyst of kidney, acquired (principal); N13.30 Unspecified hydronephrosis
CPT/HCPCS: 76770

== ENCOUNTER → 2018-08-08 | Outpatient (CLI) | payer MEDICARE ==
--- NOTE | 2018-08-08 08:48 | CTL ---
EXAMINATION TYPE: CT Low Dose Lung DATE OF EXAM ORDERED: 08/08/2018 HISTORY: . Lung cancer screening CT DLP: 104.[address] CTDI: 3.5 mGy Automated exposure control for dose reduction was used. SCREENING VISIT: COMPARISON: None TECHNIQUE: Low dose computed tomography scan was performed through the chest at 1 mm thick sections a nd reconstructed images in the coronal plane at [address] DIAGNOSTIC QUALITY: Satisfactory FINDINGS: LUNG NODULES: 1. 2 mm subpleural nodule left upper lobe. 2. 2 mm subpleural nodule image 73 right upper lobe 3 mm 2 mm right upper lobe pulmonary nodule 140 LUNGS: Groundglass changes are noted there is interlobular septal thickening suggestive of chronic interstit ial lung disease. Mild emphysematous changes are seen. No pleural effusion or pneumothorax. No consol idative pneumonia. Changes of bronchiectasis lung bases noted. PLEURAL SPACE: There is apical pleural-based thickening. No pneumothorax. No pleural effusion. HEART: Coronary artery calcification is noted. Heart size is grossly within normal limits. Atherosclerotic c hange of aorta. OTHER FINDINGS: Structures of the upper abdomen demonstrate no definite acute process. Small hiatal hernia noted. Hyp ertrophic and degenerative change of the spine IMPRESSION: 1. 5 mm or less pulmonary nodules as discussed above. 2. Correlate for COPD and chronic interstitial lung disease. Basilar bronchiectasis noted. 3. Groundglass changes right lower lobe correlate for atelectasis versus alveolitis.. 4. Atherosclerotic change coronary arteries. FOLLOW UP CT CHEST RECOMMENDATION: Six-month follow-up CT scan recommended CT LUNG RAD: Lung-Rad 2 Benign Appearance or Behavior
== END | disposition home or self-care (01) ==
LOC: RADCTMAIN 07:49
PROVIDERS: ATTEND Family Medicine
DX: Z12.2 Encounter for screening for malignant neoplasm of respiratory organs (principal); R91.8 Other nonspecific abnormal finding of lung field; J84.9 Interstitial pulmonary disease, unspecified; J47.9 Bronchiectasis, uncomplicated; I25.10 Atherosclerotic heart disease of native coronary artery without angina pectoris; F17.210 Nicotine dependence, cigarettes, uncomplicated